=== PATIENT | male | born 1945 | race Caucasian/White ===

== ENCOUNTER 2021-06-17 13:27 | Inpatient (IN) | payer OTHER ==
[~2021-06-17] VITALS: Ht 185.4 cm; Wt 147.4 kg
[2021-06-17] MEDS: ACCU-CHEK COMFORT CURVE STRIP VI SCH ×2 (00:45→16:00)
[2021-06-17] MEDS ORDERED: ONDANSETRON HCL 4 MG/2 ML VIAL IV ONE (13:45)
[2021-06-17] MEDS ORDERED: MORPHINE SULFATE 4 MG/ML SYR/VIAL IV ONE (13:45)
[2021-06-17 13:59] LABS: Basophils # (auto) 0.1 10 ^3/uL (0-0.2); Basophils % (auto) 1.3 % (0.0-2.0); Eosinophils # (auto) 0.3 10 ^3/uL (0-0.8); Eosinophils % (auto) 3.9 % (0.0-7.0); Hematocrit 38.6 % (41.0-53.0); Lymphocytes # (auto) 0.6 10 ^3/uL (0.4-5.4); Lymphocytes % (auto) 9.5 % (10.0-50.0); Mean Corpuscular Hemoglobin 30.1 pg (28.0-32.0); Mean Corpuscular Hgb Conc. 33.7 g/dL (32.0-36.0); Mean Corpuscular Volume 89.3 fL (80.0-100.0); Monocytes # (auto) 0.6 10 ^3/uL (0-1.3); Monocytes % (auto) 8.7 % (0.0-12.0); Neutrophils # (auto) 4.9 10 ^3/uL (1.6-8.6); Neutrophils % (auto) 76.6 % (37.0-80.0); Nucleated Red Blood Cells % 0.1 %; Red Blood Cells 4.32 10^6/uL (4.5-5.90); Red Cell Distribution Width 14.3 % (11.8-14.3); White Blood Cell 6.4 10^3/uL (4.4-10.8)
[2021-06-17 14:15] LABS: INR 1.07 (0.9-1.15); Partial Thromboplastin Time 30.9 sec (23.6-33.0)
[2021-06-17 14:37] LABS: Albumin 3.3 g/dL (3.4-5.0); Calcium 9.5 mg/dL (8.5-10.1); Potassium 3.6 mmol/L (3.5-5.1)
[2021-06-17 14:54] LABS: BUN/Creatinine Ratio 19.3; Bilirubin, Total 0.4 mg/dL (0.2-1.0); Total Protein 7.1 g/dL (6.4-8.2)
[2021-06-17] MEDS ORDERED: CLOPIDOGREL BISULFATE 75 MG TAB PO ONE (15:30)
[2021-06-17] MEDS ORDERED: hydrALAZINE HCL 20 MG/ML VL IV PRN (16:00)
[2021-06-17] MEDS ORDERED: DOCUSATE CALCIUM 240 MG CAP PO PRN (16:00)
[2021-06-17] MEDS ORDERED: ONDANSETRON HCL 4 MG/2 ML VIAL IV PRN (16:00)
[2021-06-17] MEDS ORDERED: DEXTROSE (50%) 50ML SYRG IV PRN (16:00)
[2021-06-17] MEDS ORDERED: FUROSEMIDE 40 MG/4 ML VIAL IV ONE (16:15)
[2021-06-17] MEDS ORDERED: POTASSIUM EFFERVESENT TAB 25 MEQ PO ONE (16:15)
[2021-06-17] MEDS ORDERED: MORPHINE SULFATE INJECTION 2 MG/ML SYRG IV PRN (18:45)
[2021-06-17] MEDS ORDERED: NITROGLYCERIN 0.4 MG SL TAB SL PRN (18:45)
[2021-06-17] MEDS: InsuLIN REG 1unit/0.01ml Soln (100units/ml) SC SCH (19:05)
[2021-06-17 19:20] LABS: BUN/Creatinine Ratio 18.6; Calcium 9.5 mg/dL (8.5-10.1); Potassium 3.8 mmol/L (3.5-5.1)
[2021-06-17 21:35] LABS: Urine Bacteria NONE SEEN /hpf (None Seen); Urine Blood 2+ /uL (Negative); Urine Hyaline Cast FEW /lpf (0 - 2); Urine Specific Gravity 1.007 (1.001-1.035); Urine WBC 1 /hpf (0 - 3)
[2021-06-18] MEDS: ACCU-CHEK COMFORT CURVE STRIP VI SCH ×6 (00:45→20:30)
[2021-06-18] MEDS: InsuLIN REG 1unit/0.01ml Soln (100units/ml) SC SCH ×7 (00:58→20:35)
[2021-06-18] MEDS: INSULIN LANTUS (GLARGINE) 1 /0.01ml (100units/ml) SC SCH ×2 (00:59→22:47)
[2021-06-18 04:01] LABS: Basophils # (auto) 0.1 10 ^3/uL (0-0.2); Basophils % (auto) 1.6 % (0.0-2.0); Eosinophils # (auto) 0.4 10 ^3/uL (0-0.8); Eosinophils % (auto) 4.7 % (0.0-7.0); Hematocrit 38.1 % (41.0-53.0); Lymphocytes # (auto) 0.6 10 ^3/uL (0.4-5.4); Lymphocytes % (auto) 8.1 % (10.0-50.0); Mean Corpuscular Hemoglobin 30.4 pg (28.0-32.0); Mean Corpuscular Hgb Conc. 34.1 g/dL (32.0-36.0); Mean Corpuscular Volume 89.1 fL (80.0-100.0); Monocytes # (auto) 0.7 10 ^3/uL (0-1.3); Monocytes % (auto) 9.4 % (0.0-12.0); Neutrophils # (auto) 5.9 10 ^3/uL (1.6-8.6); Neutrophils % (auto) 76.2 % (37.0-80.0); Red Blood Cells 4.27 10^6/uL (4.5-5.90); Red Cell Distribution Width 14.3 % (11.8-14.3); White Blood Cell 7.7 10^3/uL (4.4-10.8)
[2021-06-18 04:15] LABS: Albumin 3.1 g/dL (3.4-5.0); Calcium 9.4 mg/dL (8.5-10.1); Potassium 3.7 mmol/L (3.5-5.1)
[2021-06-18 04:23] LABS: Bilirubin, Total 0.5 mg/dL (0.2-1.0); Total Protein 6.8 g/dL (6.4-8.2)
[2021-06-18] MEDS: PANTOPRAZOLE 40 MG TAB PO SCH (09:45)
[2021-06-18] MEDS ORDERED: ENOXAPARIN SOD 40 MG/0.4 ML SYRINGE SC SCH (10:00)
[2021-06-18] MEDS ORDERED: LACTULOSE 20Gm/30ML SOLN PO PRN (14:15)
[2021-06-18] MEDS ORDERED: ENOXAPARIN SOD 120 MG/0.8 ML SYRINGE SC ONE (14:15)
[2021-06-18 21:30] VITALS: BP 132/79
[2021-06-18] MEDS ORDERED: POTA10TA51 PO (21:56)
[2021-06-18] MEDS ORDERED: TERA2CAP45 PO (21:56)
[2021-06-18] MEDS ORDERED: LOVA20TA4 PO (21:56)
[2021-06-18] MEDS ORDERED: LOSA100T25 PO (21:57)
[2021-06-18] MEDS: SODIUM CHLOR 0.9% PF (SALINE LOCK) 10ML VIAL/SYR IV SCH (22:43)
[2021-06-18] MEDS: FUROSEMIDE 40 MG/4 ML VIAL IV SCH (22:43)
[2021-06-18] MEDS: CARVEDILOL 3.125 MG TAB PO SCH (22:44)
[2021-06-18] MEDS: ATORVASTATIN 20 MG TAB PO SCH (22:44)
[2021-06-18] MEDS: ENOXAPARIN SOD 120 MG/0.8 ML SYRINGE SC SCH (22:47)
[2021-06-19] MEDS: InsuLIN REG 1unit/0.01ml Soln (100units/ml) SC SCH ×7 (00:30→23:21)
[2021-06-19] MEDS: ACCU-CHEK COMFORT CURVE STRIP VI SCH ×7 (00:30→23:21)
[2021-06-19] MEDS: CARVEDILOL 3.125 MG TAB PO SCH ×3 (00:45→21:33)
[2021-06-19 05:29] VITALS: BP 121/64
[2021-06-19 05:41] LABS: Basophils # (auto) 0.1 10 ^3/uL (0-0.2); Basophils % (auto) 1.5 % (0.0-2.0); Eosinophils # (auto) 0.4 10 ^3/uL (0-0.8); Eosinophils % (auto) 6.3 % (0.0-7.0); Hematocrit 36.7 % (41.0-53.0); Hemoglobin 12.4 g/dL (13.5-17.5); Lymphocytes # (auto) 1.1 10 ^3/uL (0.4-5.4); Lymphocytes % (auto) 17.7 % (10.0-50.0); Mean Corpuscular Hgb Conc. 33.8 g/dL (32.0-36.0); Mean Corpuscular Volume 88.7 fL (80.0-100.0); Monocytes # (auto) 0.8 10 ^3/uL (0-1.3); Monocytes % (auto) 12.8 % (0.0-12.0); Neutrophils # (auto) 3.7 10 ^3/uL (1.6-8.6); Neutrophils % (auto) 61.7 % (37.0-80.0); Nucleated Red Blood Cells % 0.1 %; Red Blood Cells 4.14 10^6/uL (4.5-5.90); Red Cell Distribution Width 14.1 % (11.8-14.3)
[2021-06-19] MEDS: SODIUM CHLOR 0.9% PF (SALINE LOCK) 10ML VIAL/SYR IV SCH ×3 (06:00→21:30)
[2021-06-19 06:02] LABS: Calcium 9.1 mg/dL (8.5-10.1); Potassium 3.1 mmol/L (3.5-5.1)
[2021-06-19 06:09] LABS: BUN/Creatinine Ratio 21.7; Bilirubin, Total 0.7 mg/dL (0.2-1.0); Total Protein 6.6 g/dL (6.4-8.2)
[2021-06-19 08:00] VITALS: BP 119/68
[2021-06-19 09:20] VITALS: BP 119/68
[2021-06-19] MEDS: ASPirin 81 mg TAB PO SCH (09:38)
[2021-06-19] MEDS: ENALAPRIL MALEATE 2.5 MG TAB PO SCH (09:39)
[2021-06-19] MEDS: POTASSIUM CHL 20 Meq TABLET PO SCH (09:39)
[2021-06-19] MEDS: PANTOPRAZOLE 40 MG TAB PO SCH ×2 (09:39→21:43)
[2021-06-19] MEDS: FUROSEMIDE 40 MG/4 ML VIAL IV SCH ×2 (09:40→21:32)
[2021-06-19] MEDS: CLOPIDOGREL BISULFATE 75 MG TAB PO SCH (09:40)
[2021-06-19] MEDS: ENOXAPARIN SOD 120 MG/0.8 ML SYRINGE SC SCH ×2 (09:43→21:40)
[2021-06-19 12:00] VITALS: BP 116/72
[2021-06-19 18:00] VITALS: BP 109/65
[2021-06-19 18:40] LABS: Hematocrit 39.5 % (41.0-53.0); Hemoglobin 13.5 g/dL (13.5-17.5)
[2021-06-19] MEDS: ATORVASTATIN 20 MG TAB PO SCH (21:30)
[2021-06-19 22:00] VITALS: BP 116/67
[2021-06-19] MEDS: INSULIN LANTUS (GLARGINE) 1 /0.01ml (100units/ml) SC SCH (22:00)
[2021-06-20] VITALS (9 sets, daily range): BP systolic 107–143; BP diastolic 61–78
[2021-06-20 00:41] LABS: Hematocrit 38.4 % (41.0-53.0); Hemoglobin 13.1 g/dL (13.5-17.5)
[2021-06-20] MEDS: ACCU-CHEK COMFORT CURVE STRIP VI SCH ×5 (03:50→21:23)
[2021-06-20] MEDS: InsuLIN REG 1unit/0.01ml Soln (100units/ml) SC SCH ×5 (03:54→21:20)
[2021-06-20 05:34] LABS: Hematocrit 37.4 % (41.0-53.0); Hemoglobin 12.8 g/dL (13.5-17.5)
[2021-06-20] MEDS: SODIUM CHLOR 0.9% PF (SALINE LOCK) 10ML VIAL/SYR IV SCH ×3 (06:02→21:24)
[2021-06-20] MEDS: CARVEDILOL 3.125 MG TAB PO SCH ×2 (08:20→21:24)
[2021-06-20] MEDS: ASPirin 81 mg TAB PO SCH (08:20)
[2021-06-20] MEDS: FUROSEMIDE 40 MG/4 ML VIAL IV SCH ×2 (08:21→21:23)
[2021-06-20] MEDS: POTASSIUM CHL 20 Meq TABLET PO SCH (08:22)
[2021-06-20] MEDS: ENALAPRIL MALEATE 2.5 MG TAB PO SCH (08:22)
[2021-06-20] MEDS: PANTOPRAZOLE 40 MG TAB PO SCH ×2 (08:22→21:25)
[2021-06-20] MEDS: ENOXAPARIN SOD 120 MG/0.8 ML SYRINGE SC SCH (08:23)
[2021-06-20] MEDS: CLOPIDOGREL BISULFATE 75 MG TAB PO SCH (08:24)
[2021-06-20] MEDS ORDERED: IOHEXOL 350 MG/ML 100ML IJ ONE (13:17)
[2021-06-20] MEDS ORDERED: LIDOCAINE 2%HCL (LOCAL ANESTH.) INJ 20ML MDV ONE (13:17)
[2021-06-20] MEDS ORDERED: ANGIOMAX 250 MG VIAL IV ONE (13:19)
[2021-06-20] MEDS ORDERED: SODIUM CHL 0.9% 50 ML ONE (13:20)
[2021-06-20] MEDS ORDERED: fentaNYL CITRATE 100 MCG/2 ML VL ONE (13:20)
[2021-06-20] MEDS ORDERED: MIDAZOLAM HCL 2MG/2ML 2ml VIAL (1mg/ml) ONE (13:20)
[2021-06-20] MEDS ORDERED: TICAGRELOR 90 MG TAB ONE (13:49)
[2021-06-20] MEDS ORDERED: CLOPIDOGREL 300 MG TAB ONE (13:53)
[2021-06-20] MEDS ORDERED: POTASSIUM CHL 20 Meq TABLET PO ONE (18:45)
[2021-06-20] MEDS: ATORVASTATIN 20 MG TAB PO SCH (21:25)
[2021-06-20] MEDS: INSULIN LANTUS (GLARGINE) 1 /0.01ml (100units/ml) SC SCH (22:06)
[2021-06-21] MEDS: ACCU-CHEK COMFORT CURVE STRIP VI SCH ×7 (00:47→23:55)
[2021-06-21] MEDS: InsuLIN REG 1unit/0.01ml Soln (100units/ml) SC SCH ×7 (04:00→23:56)
[2021-06-21] MEDS: SODIUM CHLOR 0.9% PF (SALINE LOCK) 10ML VIAL/SYR IV SCH ×3 (04:32→22:05)
[2021-06-21 05:09] VITALS: BP 107/59
[2021-06-21 06:11] LABS: Basophils # (auto) 0.1 10 ^3/uL (0-0.2); Basophils % (auto) 0.9 % (0.0-2.0); Eosinophils # (auto) 0.2 10 ^3/uL (0-0.8); Eosinophils % (auto) 3.1 % (0.0-7.0); Hematocrit 36.8 % (41.0-53.0); Hemoglobin 12.9 g/dL (13.5-17.5); Lymphocytes # (auto) 0.7 10 ^3/uL (0.4-5.4); Lymphocytes % (auto) 9.5 % (10.0-50.0); Mean Corpuscular Hemoglobin 30.6 pg (28.0-32.0); Mean Corpuscular Volume 87.4 fL (80.0-100.0); Monocytes # (auto) 0.7 10 ^3/uL (0-1.3); Monocytes % (auto) 10.2 % (0.0-12.0); Neutrophils # (auto) 5.4 10 ^3/uL (1.6-8.6); Neutrophils % (auto) 76.3 % (37.0-80.0); Red Blood Cells 4.21 10^6/uL (4.5-5.90); Red Cell Distribution Width 13.9 % (11.8-14.3); White Blood Cell 7.1 10^3/uL (4.4-10.8)
[2021-06-21 06:27] LABS: Potassium 3.5 mmol/L (3.5-5.1)
[2021-06-21 06:29] LABS: INR 1.07 (0.9-1.15); Partial Thromboplastin Time 34.7 sec (23.6-33.0)
[2021-06-21 06:45] LABS: BUN/Creatinine Ratio 22.4; Bilirubin, Total 0.7 mg/dL (0.2-1.0); Calcium 9.1 mg/dL (8.5-10.1); Magnesium 2.4 mg/dL (1.6-2.6); Phosphorus 2.6 mg/dL (2.5-4.90); Total Protein 6.8 g/dL (6.4-8.2)
[2021-06-21 09:00] VITALS: BP 122/63
[2021-06-21] MEDS: FUROSEMIDE 40 MG/4 ML VIAL IV SCH ×2 (09:33→22:06)
[2021-06-21] MEDS: ASPirin 81 mg TAB PO SCH (09:37)
[2021-06-21] MEDS: CARVEDILOL 3.125 MG TAB PO SCH ×2 (09:38→22:04)
[2021-06-21] MEDS: PANTOPRAZOLE 40 MG TAB PO SCH ×2 (09:38→22:04)
[2021-06-21] MEDS: CLOPIDOGREL BISULFATE 75 MG TAB PO SCH (09:38)
[2021-06-21] MEDS: POTASSIUM CHL 20 Meq TABLET PO SCH (09:38)
[2021-06-21] MEDS: ENALAPRIL MALEATE 2.5 MG TAB PO SCH (09:39)
[2021-06-21 13:00] VITALS: BP 130/68
[2021-06-21 16:36] VITALS: BP 126/65
[2021-06-21 22:00] VITALS: BP 146/72
[2021-06-21] MEDS: INSULIN LANTUS (GLARGINE) 1 /0.01ml (100units/ml) SC SCH (22:03)
[2021-06-21] MEDS: ATORVASTATIN 20 MG TAB PO SCH (22:05)
[2021-06-22] MEDS: InsuLIN REG 1unit/0.01ml Soln (100units/ml) SC SCH ×3 (04:00→12:34)
[2021-06-22] MEDS: ACCU-CHEK COMFORT CURVE STRIP VI SCH ×3 (04:01→12:00)
[2021-06-22 05:00] VITALS: BP 123/70
[2021-06-22] MEDS: SODIUM CHLOR 0.9% PF (SALINE LOCK) 10ML VIAL/SYR IV SCH ×2 (05:51→14:00)
[2021-06-22 06:19] LABS: Hematocrit 36.8 % (41.0-53.0); Hemoglobin 12.5 g/dL (13.5-17.5)
[2021-06-22 06:37] LABS: BUN/Creatinine Ratio 23.6; Calcium 9.2 mg/dL (8.5-10.1)
[2021-06-22] MEDS: FUROSEMIDE 40 MG/4 ML VIAL IV SCH (08:28)
[2021-06-22] MEDS: ENALAPRIL MALEATE 2.5 MG TAB PO SCH (08:29)
[2021-06-22] MEDS: CLOPIDOGREL BISULFATE 75 MG TAB PO SCH (08:29)
[2021-06-22] MEDS: CARVEDILOL 3.125 MG TAB PO SCH (08:30)
[2021-06-22] MEDS: PANTOPRAZOLE 40 MG TAB PO SCH (08:30)
[2021-06-22] MEDS: POTASSIUM CHL 20 Meq TABLET PO SCH (08:31)
[2021-06-22] MEDS: ASPirin 81 mg TAB PO SCH (08:31)
[2021-06-22 09:00] VITALS: BP 112/64
[2021-06-22] MEDS ORDERED: PANT40TA2 PO (11:54)
[2021-06-22] MEDS ORDERED: ASPI1CHW15 PO (11:54)
[2021-06-22] MEDS ORDERED: CLOP75TA28 PO (11:54)
[2021-06-22] MEDS ORDERED: CAR3125T PO (11:54)
[2021-06-22] MEDS ORDERED: ATO40T PO (11:59)
[2021-06-22] MEDS ORDERED: ENAL2.5T7 PO (11:59)
[2021-06-22] MEDS ORDERED: INSLANTI SC (11:59)
[2021-06-22] MEDS ORDERED: POTASSIUM CHL 20 Meq TABLET PO ONE (12:00)
== END 2021-06-22 15:00 | disposition home or self-care (01) | DRG 246 ==
LOC: EDBD 13:27 → ER 13:27 → TELE 18:38 → TELE-WESTW 06-18 19:50
PROVIDERS: ADMIT Family Medicine; ATTEND Internal Medicine
PROC: 027034Z Dilation of Coronary Artery, One Artery with Drug-eluting Intraluminal Device, Percutaneous Approach (ICD-10-PCS; principal; 2021-06-20)
PROC: B2111ZZ Fluoroscopy of Multiple Coronary Arteries using Low Osmolar Contrast (ICD-10-PCS; 2021-06-20)
DX: I21.4 Non-ST elevation (NSTEMI) myocardial infarction (principal); I50.43 Acute on chronic combined systolic (congestive) and diastolic (congestive) heart failure; Z68.41 Body mass index [BMI] 40.0-44.9, adult; E78.5 Hyperlipidemia, unspecified; E87.6 Hypokalemia; E03.9 Hypothyroidism, unspecified; E11.65 Type 2 diabetes mellitus with hyperglycemia; E66.01 Morbid (severe) obesity due to excess calories; I25.10 Atherosclerotic heart disease of native coronary artery without angina pectoris; Z83.3 Family history of diabetes mellitus; N40.0 Benign prostatic hyperplasia without lower urinary tract symptoms; I10 Essential (primary) hypertension; Z20.822 Contact with and (suspected) exposure to COVID-19; I25.5 Ischemic cardiomyopathy
CPT/HCPCS: 36415; 71045; 80048; 80053; 80061; 81001; 82306; 82962; 83036; 83735; 83880; 84100; 84443; 84484; 85014; 85018; 85025; 85045; 85379; 85610; 85730; 87426; 92928; 93005; 93306; 93454; 93970; 96372; 96374; 96375; 97163; 99152; 99291; C1874; G0378; J1815; J2250; J2405

== ENCOUNTER 2023-06-18 19:19 | Emergency (ER) | payer OTHER ==
[~2023-06-18] VITALS: Ht 185.4 cm; Wt 102.0 kg
[~2023-06-18 19:19] MED LIST: ASPI-736 PO; ATO40T PO; CAR3125T PO; CLOP75TA28 PO; ENAL1TAB42 PO; INSLANTI SC; PANT40TA2 PO; POTA10TA51 PO; TERA2CAP45 PO
[2023-06-18 20:27] VITALS: BP 174/98; TEMP 97.8
[2023-06-18 20:29] VITALS: PULSE 61; RESP 20; O2SAT 97
== END 2023-06-18 21:23 | disposition left against medical advice (07) ==
LOC: ER 19:19
DX: M79.89 Other specified soft tissue disorders (principal); R79.1 Abnormal coagulation profile; R26.81 Unsteadiness on feet; E11.9 Type 2 diabetes mellitus without complications; I11.0 Hypertensive heart disease with heart failure; I50.9 Heart failure, unspecified; E78.5 Hyperlipidemia, unspecified; E66.01 Morbid (severe) obesity due to excess calories; Z68.29 Body mass index [BMI] 29.0-29.9, adult; Z90.89 Acquired absence of other organs; Z79.82 Long term (current) use of aspirin; Z79.4 Long term (current) use of insulin; Z79.899 Other long term (current) drug therapy